=== PATIENT | female | born 1980 | race Caucasian/White ===

== ENCOUNTER 2021-12-16 13:06 | Emergency (ER) | payer BC, SELFPAY ==
--- NOTE | ~2021-12-16 | XR_ITS ---
XR finger 1st RT min 2V 12/16/2021 13:28 INDICATION: Right first finger pain for 3 months. PROCEDURE: 3 views right first finger COMPARISON: 05/25/2007 FINDINGS: Fracture, dislocation or subluxation is not identified. There is a healed fracture right fi rst distal phalanx. Osteopenia. The soft tissues appear within normal limits. No foreign bodies are identified. IMPRESSION: 1: NO ACUTE BONE OR JOINT ABNORMALITY IDENTIFIED. Reviewed, dictated and finalized at location [facility]. AL CHIROPRACTOR
--- NOTE | 2021-12-16 13:11 | ED.UPPEXIN ---
HPI - Extremity Injury (Upper) General Chief Complaint: Extremity Injury, Upper Stated Complaint: Thumb Injury/Right Time Seen by Provider: 12/16/21 13:11 Source: patient and RN notes reviewed History of Present Illness HPI narrative: Patient is a 41-year-old female who presents the urgent care with complaints of right thumb swelling/pain. Patient states she is been having pain and swelling for the last 3 months and her doctor is refusing to see her. Patient states she has been using ice and ibuprofen. States that she is also worn a brace for trigger finger. Denies any known injury. No other acute complaints. No acute distress noted. Patient read the plan of care. Some parts of this dictation were generated by voice recognition software and may contain typographical and/or grammatical inaccuracies. Related Data Home Medications Medication Instructions Recorded Confirmed topiramate [Topamax] 25 mg PO DAILY 12/16/21 12/16/21 Allergies Allergy/AdvReac Type Severity Reaction Status Date / Time adhesive Allergy Mild RASH Verified 12/16/21 13:22 butorphanol Allergy Mild itching/paulie Verified 12/16/21 13:22 h ketorolac Allergy Mild RASH Verified 12/16/21 13:22 naproxen Allergy Mild HIVES Verified 12/16/21 13:22 oxycodone Allergy Mild Itching Verified 12/16/21 13:22 promethazine Allergy Mild itching/red Verified 12/16/21 13:22 rash Sulfa (Sulfonamide Allergy Mild HIVES Verified 12/16/21 13:22 Antibiotics) vancomycin Allergy Mild RASH Verified 12/16/21 13:22 METRONIDAZOLE HCL Allergy Unknown Rash Uncoded 12/16/21 13:22 Review of Systems Review of Systems: CONSTITUTIONAL: Denies fever, chills, or sweats. EYES: Denies visual changes, redness, or discharge. ENT: Denies rhinorrhea, congestion, sore throat, or otalgia. CARDIOVASCULAR: Denies chest pain, palpitations, or edema. RESPIRATORY: Denies cough or dyspnea. GASTROINTESTINAL: Denies abdominal pain, nausea, vomiting, or diarrhea. GENITOURINARY: Denies dysuria or hematuria. SKIN: Denies rash or itching. MUSCULOSKELETAL: Reports of pain, swelling and decreased mobility to the right thumb NEUROLOGIC: Denies headache, numbness, or weakness. All other systems reviewed are negative, except as documented in HPI. [facility] Family History Family History (Updated 06/15/14 @ 07:13 by DOCTOR UNKNOWN) Father Hypertension Family history of elevated blood lipids Family history of coronary artery disease Mother Family history of malignant neoplasm of cervix Family history of malignant neoplasm of ovary Sibling Family history of coronary artery disease Other Cerebrovascular accident Diabetes mellitus Family history of arthritis Family history of malignant neoplasm of male breast Social History Social History Smoking status: Never smoker Alcohol intake: current Comments At the time of my signature, I reviewed and agree with the nursing past medical, surgical, social, and family history. There is no relevant family history pertinent to the patient complaint. Exam Narrative: GENERAL: This is a well-nourished, well-developed patient, in no apparent distress. HEAD: normocephalic, atraumatic. EYES: PERRL. Sclera clear/white. Vision is grossly intact. EARS: External ears normal NOSE: External nose normal with no obvious nasal discharge, nares without redness, no rhinorrhea. THROAT: Mucous membranes moist NECK: Neck supple SKIN: warm, intact with no suspicious lesions or rash, good texture and turgor. NEURO: awake, alert, and oriented to person, place and time. There were no obvious focal neurologic abnormalities. EXTREMITIES: Mild edema and ecchymosis noted to the DIP of the right thumb. Range of motion not tested due to pain and discomfort. Positive strong right radial pulse with capillary refill less than 2 seconds. Course Course Level of Care: Express Care Visit Vital Signs Vital signs: Vital Signs Temperature 98.2 F 12/16/21 13:12 Pulse Rate 8
[2021-12-16 13:12] VITALS: BP 122/70; PULSE 81; RESP 14; TEMP 36.8; O2SAT 100
[2021-12-16 13:23] VITALS: BP 122/70; PULSE 81; RESP 14; TEMP 36.8; O2SAT 100
== END 2021-12-16 13:56 | disposition home or self-care (01) ==
PROVIDERS: Emergency Provider Nurse Practitioner Family; PCP Family Medicine
DX: S62.521A Displaced fracture of distal phalanx of right thumb, initial encounter for closed fracture (principal); X58.XXXA Exposure to other specified factors, initial encounter; N80.9 Endometriosis, unspecified
CPT/HCPCS: 29130; 73140; 99204; G0463

== ENCOUNTER 2022-10-08 15:38 | Emergency (ER) | payer SELFPAY ==
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
[2022-10-08 15:47] VITALS: BP 132/92; PULSE 75; RESP 16; TEMP 36.4; O2SAT 100
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
== END 2022-10-08 16:37 | disposition home or self-care (01) ==
PROVIDERS: Emergency Provider Registered Nurse; PCP Family Medicine
DX: M94.0 Chondrocostal junction syndrome [Tietze] (principal); N80.9 Endometriosis, unspecified
CPT/HCPCS: 71101; 99213; G0463

== ENCOUNTER 2024-04-24 18:16 | Emergency (ER) | payer OTHER, SELFPAY | END 2024-04-24 18:17 | disposition left against medical advice (07) | PROVIDERS: Emergency Provider Registered Nurse; PCP Family Medicine | DX: Z53.21 Procedure and treatment not carried out due to patient leaving prior to being seen by health care provider (principal) | CPT/HCPCS: 99199 ==